=== PATIENT | male | born 1950 | race Caucasian/White ===

== ENCOUNTER → 2017-03-19 | Outpatient (CLI) | payer OTHER, BC ==
[2017-03-19 12:24] LABS: BASO % 0.5 %; BASO ABS # 0.03 K/uL (0-0.2); COMPLETE YES; EOS % 1.2 %; HEMATOCRIT 45.1 % (42-52); IG% 0.2 %; LYMPH % 34.9 %; MEAN CORPUSCULAR HEMOGLOBIN 33.2 pg (25-34); MEAN CORPUSCULAR HGB CONC 34.6 g/dl (32-36); MEAN PLATELET VOLUME 10.6 fL (7.4-10.4); MONO % 6.2 %; PLATELET COUNT 222 K/uL (130-400); WHITE BLOOD COUNT 6.01 K/uL (4.8-10.8)
[2017-03-19 12:42] LABS: ALT/SGPT 43 U/L (12-78); AST/SGOT 34 U/L (15-37); BLOOD UREA NITROGEN 14 mg/dl (7-18); BUN/CREATININE RATIO 21.9 (10-20); CALCIUM 8.8 mg/dl (8.5-10.1); CARBON DIOXIDE 25 mmol/L (21-32); CHLORIDE 110 mmol/L (98-107); CHOLESTEROL 179 mg/dl (0-200); CREATININE 0.66 mg/dl (0.60-1.40); GLUCOSE 89 mg/dl (70-99); POTASSIUM 4.2 mmol/L (3.5-5.1); SODIUM 141 mmol/L (136-145)
[2017-03-19 12:45] LABS: ALKALINE PHOSPHATASE 104 U/L (45-117); CHOLESTEROL/HDL RATIO 4.3; HDL CHOLESTEROL 42 mg/dl; LDL CHOLESTEROL CALCULATED 122 mg/dl; TRIGLYCERIDES 77 mg/dl (0-150); VERY LOW DENSITY LIPOPROT CALC 15 mg/dl
== END | disposition home or self-care (01) ==
LOC: C.LABPVFM 08:01
PROVIDERS: ATTEND Neuromusculoskeletal Medicine & OMM
DX: Z00.00 Encounter for general adult medical examination without abnormal findings (principal); R79.89 Other specified abnormal findings of blood chemistry; R60.9 Edema, unspecified; K91.2 Postsurgical malabsorption, not elsewhere classified; D53.1 Other megaloblastic anemias, not elsewhere classified

== ENCOUNTER → 2017-04-09 | Outpatient (CLI) | payer OTHER, BC ==
--- NOTE | 2017-04-09 15:01 | DIAGNOSTIC IMAGING REPORT ---
C-SPINE ROUTINE 4 OR 5 VIEWS CLINICAL HISTORY: Neck pain COMPARISON STUDY: No previous studies for comparison. FINDINGS: The prevertebral soft tissues are normal. There are moderate degenerative changes within the lower cervical spine with disc space narrowing most pronounced at the C6-7 level. There is an element of bony foraminal narrowing at the C5-6 and C6-7 levels on the right. No fractures or traumatic subluxations are visualized. IMPRESSION: 1. No fractures subluxations or destructive lesions are visualized on conventional radiographic imaging 2. Moderate degenerative changes within the lower cervical spine Electronically signed by: Olu Morales M.D. 04/09/2017 3:00 PM Dictated Date/Time: 04/09/2017 2:58 PM
== END | disposition home or self-care (01) ==
LOC: C.RADPV 14:42
PROVIDERS: ATTEND Family Medicine
DX: M54.2 Cervicalgia (principal); M89.8X8 Other specified disorders of bone, other site